=== PATIENT | male | born 1985 | race African-American/Black ===

== ENCOUNTER 2019-08-28 18:29 | Emergency (ER) | payer BC ==
[2019-08-28] MEDS ORDERED: LIDOCAINE 1% 20 ML MDV ONE (20:20)
[2019-08-28] MEDS ORDERED: MORPHINE 2 MG/ML SYR ONE (20:58)
[2019-08-28] MEDS ORDERED: KETOROLAC 30 MG/ML INJ ONE (20:59)
[2019-08-28] MEDS ORDERED: MORPHINE 4 MG/ML SYR ONE (20:59)
[2019-08-28] MEDS ORDERED: CLINDAMYCIN 600MG/D5W 600 MG/50 ML BAG IV ONE (21:00)
[2019-08-28 21:18] LABS: Absolute Lymphocytes (CBC) 3.1 K/uL (0.7-4.9); Basophils % 0.7 % (0-1.3); Hematocrit 36.3 % (39.6-49.0); Lymphocytes % 15.4 % (15.3-44.8); MPV 8.3 fL (7.6-11.3); RBC Red Blood Cell Count 5.42 M/uL (4.33-5.43)
[2019-08-28 21:19] LABS: Potassium 3.8 mmol/L (3.5-5.1)
--- NOTE | 2019-08-28 22:08 | ER ---
Nurse's Notes [facility] Name: Jayna Flor Age: 34 yrs Sex: Male : 1985 Arrival Date: 08/28/2019 Time: 18:33 Bed 18 Private MD: Diagnosis: Cutaneous abscess of back [any part, except buttock] Presentation: 08/28 19:13 Presenting complaint: Patient states: "I've been having problems with my neck its real aj1 stiff I can't hardly turn my head" Reports that he has been having this pain for a week he saw his doctor yesterday and she prescribed him Flexeril but there's a swollen spot in the back and it popped open and now theres pus coming out". Transition of care: patient was not received from another setting of care. Onset of symptoms was 2018. Risk Assessment: Do you want to hurt yourself or someone else? Patient reports no desire to harm self or others. Initial Sepsis Screen: Does the patient meet any 2 criteria? No. Patient's initial sepsis screen is negative. Does the patient have a suspected source of infection? Yes: Skin breakdown/wound. Care prior to arrival: None. 19:13 Method Of Arrival: Ambulatory aj1 19:13 Acuity: JANE 4 aj1 Triage Assessment: 19:15 General: Appears in no apparent distress. comfortable, Behavior is calm, cooperative, aj1 appropriate for age. Pain: Complains of pain in neck. Pain: Pain currently is 6 out of 10 on a pain scale. Neuro: Level of Consciousness is awake, alert, obeys commands. Cardiovascular: Patient's skin is warm and dry. Respiratory: Airway is patent Respiratory effort is even, unlabored, Respiratory pattern is regular, symmetrical. Historical: - Allergies: 19:15 No Known Allergies; aj1 - Home Meds: 19:15 amlodipine oral [Active]; carvedilol Oral [Active]; doxazosin oral oral [Active]; aj1 - PMHx: 19:15 Hypertension; aj1 - Immunization history:: Flu vaccine is not up to date. - Social history:: Smoking status: Patient/guardian denies using tobacco. - Ebola Screening: : Patient denies travel to an Ebola-affected area in the 21 days before illness onset. Screenin:20 Abuse screen: Denies threats or abuse. Denies injuries from another. Nutritional cc3 screening: No deficits noted. Tuberculosis screening: No symptoms or risk factors identified. Fall Risk Ambulatory Aid- None/Bed Rest/Nurse Assist (0 pts). Gait- Normal/Bed Rest/Wheelchair (0 pts) Mental Status- Oriented to own ability (0 pts). Assessment: 19:20 General: Appears in no apparent distress. comfortable, Behavior is calm, cooperative, cc3 appropriate for age. Pain: Complains of pain in back of his neck Pain began a week ago. Neuro: Level of Consciousness is awake, alert, obeys commands, Oriented to person, place, time, situation, Appropriate for age. Cardiovascular: Denies chest pain, Heart tones S1 S2 present Capillary refill < 3 seconds in bilateral fingers Patient's skin is warm and dry. Respiratory: Airway is patent Respiratory effort is even, unlabored, Respiratory pattern is regular, symmetrical, Breath sounds are clear bilaterally. GI: Abdomen is round obese, Bowel sounds present X 4 quads. Abd is soft and non tender X 4 quads. : No signs and/or symptoms were reported regarding the genitourinary system. EENT: No signs and/or symptoms were reported regarding the EENT system. Derm: Skin is intact, is healthy with good turgor, Skin is normal, black. Musculoskeletal: Circulation, motion, and sensation intact. Range of motion: intact in all extremities. 20:18 Reassessment: Patient appears in no apparent distress at this time. Patient and/or cc3 family updated on plan of care and expected duration. Pain level reassessed. Patient is alert, oriented x 3, equal unlabored respirations, skin warm/dry/pink. 21:20 Reassessment: Patient appears in no apparent distress at this time. Patient and/or cc3 family updated on plan of care and expected duration. Pain level reassessed. Patient is alert, oriented x 3, equal unlabored respirations, skin warm/dry/pink. 22:15 Reassessment: Patient appears in no apparent distress at this time. Patient and/or cc3 family updated on plan of care and expected duration. Pain level reassessed. Patient is alert, oriented x 3, equal unlabored respirations, skin warm/dry/pink. ELISSA Medrano discharged the patient home with prescriptions given. Wound cleaning and dressing done. IV cannula removed and patient left ER vitally stable and ambulatory with his . No valuables left in the patient's room. Patient denies pain at this time. Patient states feeling better. Patient states symptoms have improved. Vital Signs: 19:15 BP 168 / 97; Pulse 86; Resp 18; Temp 98.2; Pulse Ox 97% on R/A; Weight 175.09 kg (R); aj1 Height 5 ft. 10 in. (177.80 cm) (R); Pain 6/10; 20:44 BP 153 / 98; Pulse 76; Resp 16 S; Pulse Ox 100% on R/A; cc3 21:20 BP 151 / 79; Pulse 82; Resp 17 S; Pulse Ox 98% on R/A; cc3 22:12 BP 134 / 67; Pulse 78; Resp 16 S; Pulse Ox 99% on R/A; Pain 0/10; cc3 19:15 Body Mass Index 55.38 (175.09 kg, 177.80 cm) aj1 ED Course: 18:33 Patient arrived in ED. cf2 19:15 Triage completed. aj1 19:15 Arm band placed on Patient placed in an exam room. aj1 19:18 Caroline Raymundo is Primary Nurse. cc3 19:20 Patient has correct armband on for positive identification. Bed in low position. Call cc3 light in reach. Side rails up X 1. Pulse ox on. NIBP on. 19:25 Marcel Medrano PA is PHCP. [facility] 19:25 Irvin Barry MD is Attending Physician. [facility] 20:57 Initial lab(s) drawn, by ky, sent to lab. Inserted saline lock: 22 gauge in right hand, lt1 using aseptic technique. 21:00 Assist provider with I \\T\\ D: of an abscess on back of neck Set up I\\T\\D tray. Performed by cc 3 Marcel BOWERS Wound packed. iodoform gauze, Dressing with 4X4s, Patient tolerated well. 22:07 Ji Ramon MD is Referral Physician. [facility] 22:15 IV discontinued, intact, bleeding controlled, No redness/swelling at site. Pressure cc3 dressing applied. Administered Medications: 20:40 Drug: Lidocaine (1 %) 20 ml {Note: administered by ELISSA Medrano.} Volume: 20 ml; Route: cc3 Infiltration; Site: affected area; 20:53 CANCELLED (Other Intervention Used): morphine 4 mg IM once; RASS on ADMIN: Combtv4, cc3 Very Agttd3, Agttd2, Rstlss1, AlertClm0, Drwsy-1, Lt Sdtn-2, Mod Sdtn-3, Dp Sdtn-4, UnArsble-5 21:00 Drug: Ketorolac 30 mg Route: IVP; Site: right hand; cc3 22:15 Follow up: Response: No adverse reaction; Pain is decreased cc3 21:05 Drug: morphine 10 mg {Note: RASS 0.} Route: IVP; Site: right hand; cc3 22:15 Follow up: Response: No adverse reaction; Pain is decreased; RASS: Alert and Calm (0) cc3 21:10 Drug: Clindamycin 600 mg Route: IVPB; Infused Over: 30 mins; Site: right hand; cc3 21:45 Follow up: Response: No adverse reaction; IV Status: Completed infusion; IV Intake: [id number] Intake: 21:45 IV: 50ml; Total: 50ml. cc3 Outcome: 22:07 Discharge ordered by . aime 22:15 Discharged to home ambulatory, with family. cc3 22:15 Condition: stable 22:15 Discharge instructions given to patient, Instructed on discharge instructions, follow up and referral plans. medication usage, wound care, Demonstrated understanding of instructions, follow-up care, medications, wound care, Prescriptions given X 2. 22:23 Patient left the ED. cc3 Signatures: Shannon Fonseca RN RN aj1 Marcel Medrano PA PA jmm Cordel, Charlene cc3 Luzmaria Garcia lt1 Tia Liz cf2 Corrections: (The following items were deleted from the chart) 08/29 00:09 11 22:15 No provider procedures requiring assistance completed. cc3 cc3
--- NOTE | 2019-08-28 22:08 | EDPHYS ---
Physician Documentation [facility] Name: Jayna Flor Age: 34 yrs Sex: Male : 1985 Arrival Date: 08/28/2019 Time: 18:33 Bed 18 Private MD: ED Physician Irvin Barry HPI: 08/28 19:28 This 34 yrs old Black Male presents to ER via Ambulatory with complaints of Neck jmm Problem. 19:28 The patient or guardian complains of pain. Onset: The symptoms/episode began/occurred jmm gradually, 2 week(s) ago. Associated signs and symptoms: Pertinent negatives: fever. The pain does not radiate. This is a 34 year old male with a history of htn that presents to the ED with complaints of neck pain for 2 weeks. Was prescribed flexeril by pcp with no relief. Patient noticed drainage today. Denies fever or chills. . Historical: - Allergies: 19:15 No Known Allergies; aj1 - Home Meds: 19:15 amlodipine oral [Active]; carvedilol Oral [Active]; doxazosin oral oral [Active]; aj1 - PMHx: 19:15 Hypertension; aj1 - Immunization history:: Flu vaccine is not up to date. - Social history:: Smoking status: Patient/guardian denies using tobacco. - Ebola Screening: : Patient denies travel to an Ebola-affected area in the 21 days before illness onset. ROS: 19:28 Constitutional: Negative for fever, chills, and weight loss, Cardiovascular: Negative jmm for chest pain, palpitations, and edema, Respiratory: Negative for shortness of breath, cough, wheezing, and pleuritic chest pain. 19:28 Neck: Positive for pain at rest. 19:28 All other systems are negative. Exam: 19:28 Constitutional: This is a well developed, well nourished patient who is awake, alert, jmm and in no acute distress. Head/Face: atraumatic. Eyes: EOMI, no conjunctival erythema appreciated ENT: Moist Mucus Membranes Neck: Trachea midline, Supple Chest/axilla: Normal chest wall appearance and motion. Cardiovascular: Regular rate and rhythm. No edema appreciated Respiratory: Normal respirations, no respiratory distress appreciated Abdomen/GI: Non distended, soft Back: Normal ROM MS/ Extremity: Moves all extremities, no obvious deformities appreciated, no edema noted to the lower extremities 19:28 Skin: draining abscess noted to the lower cervical region. 19:28 Neuro: Orientation: is normal, Mentation: is normal, Memory: is normal. 19:28 Psych: Behavior/mood is pleasant, cooperative. Vital Signs: 19:15 BP 168 / 97; Pulse 86; Resp 18; Temp 98.2; Pulse Ox 97% on R/A; Weight 175.09 kg (R); aj1 Height 5 ft. 10 in. (177.80 cm) (R); Pain 6/10; 20:44 BP 153 / 98; Pulse 76; Resp 16 S; Pulse Ox 100% on R/A; cc3 21:20 BP 151 / 79; Pulse 82; Resp 17 S; Pulse Ox 98% on R/A; cc3 22:12 BP 134 / 67; Pulse 78; Resp 16 S; Pulse Ox 99% on R/A; Pain 0/10; cc3 19:15 Body Mass Index 55.38 (175.09 kg, 177.80 cm) [facility] Procedures: 22:03 I \T\ D: Incision and drainage was performed for an abscess of the neck Prepped with [facility] Betadine, Anesthetized with 10 ml's 1% Lidocaine. Incised with #11 blade. Drained large amount purulent fluid. Packed with sterile gauze, Dressing: sterile 4x4 gauze, the patient tolerated the procedure well. MDM: 19:28 Patient medically screened. [facility] 22:04 Data reviewed: vital signs, nurses notes. Counseling: I had a detailed discussion with [facility] the patient and/or guardian regarding: the historical points, exam findings, and any diagnostic results supporting the discharge/admit diagnosis, lab results, the need for outpatient follow up, to return to the emergency department if symptoms worsen or persist or if there are any questions or concerns that arise at home. ED course: Patient is advised to follow up with gen surgery for reevaluation. Patient given strict return precautions. Patient understood and agrees with the plan of care. . 08/28 20:45 Order name: CBC with Diff; Complete Time: 21:47 [facility] 08/28 20:45 Order name: BMP; Complete Time: 21:29 [facility] 08/28 19:44 Order name: Incision \T\ Drainage Setup; Complete Time: 20:54 [facility] 08/28 20:45 Order name: Saline Lock; Complete Time: 20:57 jmm Administered Medications: 20:40 Drug: Lidocaine (1 %) 20 ml {Note: administered by ELISSA Medrano.} Volume: 20 ml; Route: cc3 Infiltration; Site: affected area; 20:53 CANCELLED (Other Intervention Used): morphine 4 mg IM once; RASS on ADMIN: Combtv4, cc3 Very Agttd3, Agttd2, Rstlss1, AlertClm0, Drwsy-1, Lt Sdtn-2, Mod Sdtn-3, Dp Sdtn-4, UnArsble-5 21:00 Drug: Ketorolac 30 mg Route: IVP; Site: right hand; cc3 22:15 Follow up: Response: No adverse reaction; Pain is decreased cc3 21:05 Drug: morphine 10 mg {Note: RASS 0.} Route: IVP; Site: right hand; cc3 22:15 Follow up: Response: No adverse reaction; Pain is decreased; RASS: Alert and Calm (0) cc3 21:10 Drug: Clindamycin 600 mg Route: IVPB; Infused Over: 30 mins; Site: right hand; cc3 21:45 Follow up: Response: No adverse reaction; IV Status: Completed infusion; IV Intake: [id number] Disposition: 08/28/19 22:07 Discharged to Home. Impression: Cutaneous abscess of back [any part, except buttock]. - Condition is Stable. - Discharge Instructions: Skin Abscess, Incision and Drainage. - Prescriptions for Clindamycin HCl 300 mg Oral Capsule - take 1 capsule by ORAL route every 6 hours for 10 days; 40 capsule. Bactrim DS 800- 160 mg Oral Tablet - take 1 tablet by ORAL route every 12 hours for 10 days; 20 tablet. Tylenol- Codeine #3 300-30 mg Oral Tablet - take 1 tablet by ORAL route every 6 hours As needed; 20 tablet. - Medication Reconciliation Form, Thank You Letter, Antibiotic Education, Prescription Opioid Use, Work release form form. - Follow up: Ji Ramon MD; When: 2 - 3 days; Reason: Recheck today's complaints, Continuance of care, Re-evaluation by your physician. Signatures: Dispatcher [employer] Shannon Hui RN RN aj1 Marcel Medrano PA PA jmm Cordel, Charlene cc3 Corrections: (The following items were deleted from the chart) 20:53 20:33 morphine 4 mg IM once; RASS on ADMIN: Combtv4, Very Agttd3, Agttd2, Rstlss1, cc3 AlertClm0, Drwsy-1, Lt Sdtn-2, Mod Sdtn-3, Dp Sdtn-4, UnArsble-5 ordered. [facility] 20:53 20:44 morphine 4 mg IM once; RASS on ADMIN: Combtv4, Very Agttd3, Agttd2, Rstlss1, cc3 AlertClm0, Drwsy-1, Lt Sdtn-2, Mod Sdtn-3, Dp Sdtn-4, UnArsble-5 ordered. cc3 22:23 22:07 08/28/2019 22:07 Discharged to Home. Impression: Cutaneous abscess of back [any cc3 part, except buttock]. Condition is Stable. Forms are Medication Reconciliation Form, Thank You Letter, Antibiotic Education, Prescription Opioid Use. Follow up: Ji Ramon; When: 2 - 3 days; Reason: Recheck today's complaints, Continuance of care, Re-evaluation by your physician. aime
[2019-08-28 23:30] VITALS: BP 168/97; TEMP 98.2; O2SAT 97
== END 2019-08-28 22:23 | disposition home or self-care (01) ==
LOC: ER 18:29
PROC: 0H94XZZ Drainage of Neck Skin, External Approach (ICD-10-PCS; principal; 2019-08-28)
DX: L02.11 Cutaneous abscess of neck (principal); I10 Essential (primary) hypertension
CPT/HCPCS: 36415; 80048; 85025; 96365; 96375; 99284; J2270

== ENCOUNTER 2021-06-21 19:01 | Emergency (ER) | payer BC ==
--- OUTSIDE RECORDS SUMMARY | 2021-06-21 19:04 | XMS REPORT | Continuity of Care Document ---
:1985 Author Organization [facility] t Address [facility] [address] Gandhi [address] [place] [id number] Care Team Providers Name Role Phone Unavailable Unavailable Unavailable Problems This patient has no known problems. Allergies, Adverse Reactions, Alerts This patient has no known allergies or adverse reactions. Medications This patient has no known medications. Procedures This patient has no known procedures. Results This patient has no known results.
[2021-06-21] MEDS ORDERED: ACETAMINOPHEN 500 MG TAB ONE (19:50)
[2021-06-21] MEDS ORDERED: ASPIRIN 81 MG CHEWABLE TABLET ONE (21:10)
[2021-06-21] MEDS ORDERED: FAMOTIDINE 20 MG/2 ML VIAL IV ONE (21:10)
[2021-06-21] MEDS ORDERED: NA CHLORIDE 0.9% 1,000 ML ONE (21:10)
[2021-06-21] MEDS ORDERED: AZITHROMYCIN 250 MG TAB ONE (21:10)
[2021-06-21] MEDS ORDERED: CASIRIVIMAB/IMDEVIMAB 10 ML VIAL ONE (21:52)
[2021-06-21 22:16] LABS: Absolute Lymphocytes (CBC) 1.1 K/uL (0.7-4.9); Basophils % 0.8 % (0-1.3); Hematocrit 39.1 % (39.6-49.0); Lymphocytes % 16.9 % (15.3-44.8); MPV 9.3 fL (7.6-11.3); RBC Red Blood Cell Count 5.87 M/uL (4.33-5.43)
[2021-06-21] MEDS ORDERED: NA CHLORIDE 0.9% 50 ML ONE (22:20)
[2021-06-21] MEDS ORDERED: NA CHLORIDE 0.9% 250 ML ONE (22:20)
[2021-06-21 22:30] LABS: Albumin 3.6 g/dL (3.4-5.0); Bilirubin Total 0.5 mg/dL (0.2-1.0); C-Reactive Protein 9.95 mg/L (<3.00); Ferritin 189.5 ng/mL (26-388); Potassium 3.6 mmol/L (3.5-5.1); Protein, Total 7.9 g/dL (6.4-8.2)
--- NOTE | 2021-06-21 22:39 | EDPHYS ---
Physician Documentation [facility] Name: Jayna Flor Age: 36 yrs Sex: Male : 1985 Arrival Date: 06/21/2021 Time: 19:07 Bed DX3 Private MD: KETTY Physician Antonio Kam HPI: 06/21 20:40 This 36 yrs old Black Male presents to ER via Ambulatory with complaints of High Blood angel Pressure, COVID POSITIVE. 20:40 The patient has elevated blood pressure and discovered this at home, with a home angel device. Onset: The symptoms/episode began/occurred today. Modifying factors: The symptoms are aggravated by activity, The symptoms are alleviated by remaining still. Historical: - Allergies: 19:21 amlodipine; kg - Home Meds: 19:21 losartan 50 mg oral tab 1 tab 2 times per day [Active]; tamsulosin 0.4 mg oral cap 1 kg cap BID [Active]; furosemide 20 mg Oral tab 1 tab 2 times per day [Active]; carvedilol 25 mg oral tab 1 tab every 12 hours [Active]; - PMHx: 19:21 Hypertension; CKD; kg - PSHx: 19:21 None; kg - Immunization history:: Adult Immunizations not up to date, Client reports having NOT received the Covid vaccine. - Social history:: Smoking status: Patient denies any tobacco usage or history of. Patient uses alcohol, weekly. ROS: 20:40 Eyes: Negative for injury, pain, redness, and discharge, ENT: Negative for injury, angel pain, and discharge, Neck: Negative for injury, pain, and swelling, Cardiovascular: Negative for chest pain, palpitations, and edema. 20:40 Respiratory: Negative for shortness of breath, cough, wheezing, and pleuritic chest pain, Abdomen/GI: Negative for abdominal pain, nausea, vomiting, diarrhea, and constipation, Back: Negative for injury and pain, : Negative for injury, bleeding, discharge, and swelling, MS/Extremity: Negative for injury and deformity, Skin: Negative for injury, rash, and discoloration, Neuro: Negative for headache, weakness, numbness, tingling, and seizure, Psych: Negative for depression, anxiety, suicide ideation, homicidal ideation, and hallucinations, Allergy/Immunology: Negative for hives, rash, and allergies, Endocrine: Negative for neck swelling, polydipsia, polyuria, polyphagia, and marked weight changes, Hematologic/Lymphatic: Negative for swollen nodes, abnormal bleeding, and unusual bruising. 20:40 Constitutional: Positive for fever. Exam: 20:40 Head/Face: Normocephalic, atraumatic. Eyes: Pupils equal round and reactive to light, angel extra-ocular motions intact. Lids and lashes normal. Conjunctiva and sclera are non-icteric and not injected. Cornea within normal limits. Periorbital areas with no swelling, redness, or edema. ENT: Nares patent. No nasal discharge, no septal abnormalities noted. Tympanic membranes are normal and external auditory canals are clear. Oropharynx with no redness, swelling, or masses, exudates, or evidence of obstruction, uvula midline. Mucous membranes moist. Neck: Trachea midline, no thyromegaly or masses palpated, and no cervical lymphadenopathy. Supple, full range of motion without nuchal rigidity, or vertebral point tenderness. No Meningismus. Chest/axilla: Normal chest wall appearance and motion. Nontender with no deformity. No lesions are appreciated. Cardiovascular: Regular rate and rhythm with a normal S1 and S2. No gallops, murmurs, or rubs. Normal PMI, no JVD. No pulse deficits. Respiratory: Lungs have equal breath sounds bilaterally, clear to auscultation and percussion. No rales, rhonchi or wheezes noted. No increased work of breathing, no retractions or nasal flaring. Abdomen/GI: Soft, non-tender, with normal bowel sounds. No distension or tympany. No guarding or rebound. No evidence of tenderness throughout. Back: No spinal tenderness. No costovertebral tenderness. Full range of motion. Male : Normal genitalia with no discharge or lesions. Skin: Warm, dry with normal turgor. Normal color with no rashes, no lesions, and no evidence of cellulitis. MS/ Extremity: Pulses equal, no cyanosis. Neurovascular intact. Full, normal range of motion. Neuro: Awake and alert, GCS 15, oriented to person, place, time, and situation. Cranial nerves II-XII grossly intact. Motor strength 5/5 in all extremities. Sensory grossly intact. Cerebellar exam normal. Normal gait. Psych: Awake, alert, with orientation to person, place and time. Behavior, mood, and affect are within normal limits. 20:40 Constitutional: The patient appears febrile. Vital Signs: 19:15 BP 159 / 81; Pulse 86; Resp 20; Temp 100.6(O); Pulse Ox 98% on R/A; Weight 183.7 kg kg (R); Height 5 ft. 10 in. (177.80 cm); Pain 8/10; 21:19 BP 141 / 77; Pulse 77; Resp 18 S; Temp 97.9(O); Pulse Ox 97% on R/A; bb 22:08 BP 158 / 87; Pulse 77; Resp 18 S; Pulse Ox 96% ; bb 22:51 BP 164 / 89; Pulse 77; Resp 18 S; Pulse Ox 95% on R/A; bb 23:38 BP 174 / 88; Pulse 76; Resp 18 S; Temp 98.7(O); Pulse Ox 97% on R/A; bb 19:15 Body Mass Index 58.11 (183.70 kg, 177.80 cm) kg MDM: 19:54 Patient medically screened. [facility] 20:42 Differential diagnosis: viral Infection, bacterial infection, URI, bronchitis, angel pneumonia. Differential Diagnosis: Influenza Upper Respiratory Infection Sinusitis Pharyngitis Otitis Media Allergic Rhinitis. Data reviewed: nurses notes, EMS record, lab test result(s), EKG, radiologic studies, plain films. Data interpreted: certified real estate appraiser: rate is 86 beats/min, rhythm is regular. Test interpretation: by ED physician or midlevel provider: ECG, plain radiologic studies. Counseling: I had a detailed discussion with the patient and/or guardian regarding: the historical points, exam findings, and any diagnostic results supporting the discharge/admit diagnosis, lab results, radiology results, the need for outpatient follow up, for definitive care, a family practitioner, a director of web marketing. 06/21 20:38 Order name: CBC with Diff angel 06/21 20:38 Order name: Comprehensive Metabolic Panel; Complete Time: 22:36 [facility] 06/21 20:38 Order name: Chest Pa And Lat (2 Views) XRAY 06/21 20:38 Order name: Ferritin; Complete Time: 22:36 [facility] 06/21 20:38 Order name: CRP; Complete Time: 22:36 [facility] 06/21 22:20 Order name: CBC Smear Scan EDMS Administered Medications: 20:13 Drug: Tylenol 1000 mg Route: PO; kg 21:18 Follow up: Response: No adverse reaction; Temperature is decreased bb 21:00 Drug: Aspirin Chewable Tablet 324 mg Route: PO; bb 22:11 Follow up: Response: No adverse reaction bb 21:00 Drug: Zithromax (azithromycin) 500 mg Route: PO; bb 22:11 Follow up: Response: No adverse reaction bb 21:18 Drug: Pepcid (famotidine) 40 mg Route: IVP; Site: right hand; bb 22:11 Follow up: Response: No adverse reaction bb 21:18 Drug: NS 0.9% 500 ml Route: IV; Rate: bolus; Site: right hand; bb 22:51 Follow up: IV Status: Completed infusion; IV Intake: 500ml bb 22:10 Drug: REGEN-COV Dose Pack 120 mg/mL-120 mg/mL (EUA) 1 vials Route: IV; Rate: per bb protocol; Site: right hand; 23:37 Follow up: IV Status: Completed infusion; IV Intake: 260ml bb 22:52 Drug: NS 0.9% 1000 ml Route: IV; Rate: 125 ml/hr; Site: right hand; bb 23:37 Follow up: IV Status: Order to discontinue infusion; IV Intake: 175ml bb Disposition Summary: 06/21/21 22:39 Discharge Ordered Location: Home angel Problem: new angel Symptoms: have improved angel Condition: Stable angel Diagnosis - Coronavirus infection, unspecified angel - Pneumonia due to SARS-associated coronavirus angel - Unspecified kidney failure - chronic renal insufficency angel Followup: angel - With: Private Physician - When: 2 - 3 days - Reason: Recheck today's complaints, Continuance of care, Re-evaluation by your physician Followup: angel - With: - When: 2 - 3 days - Reason: Recheck today's complaints, Continuance of care, Re-evaluation by your physician Discharge Instructions: - Discharge Summary Sheet angle - Upper Respiratory Infection, Adult angel - Viral Respiratory Infection, [id number] angel - Aspirin and Your Heart angel - COVID-19 angel - COVID-19 Frequently Asked Questions [facility] - 10 Things You Can Do to Manage Your COVID-19 Symptoms at Home - [facility] angel - COVID-19: Quarantine vs. Isolation - [facility] angel Forms: - Medication Reconciliation Form angel - Thank You Letter angel - Antibiotic Education [facility] - Prescription Opioid Use [facility] Prescriptions: - ivermectin 3 mg Oral tablet - take 4 tablet by ORAL route once daily; 20 tablet; Refills: 0, Product [facility] Selection Permitted - Pepcid 20 mg Oral Tablet - take 1 tablet by ORAL route every 12 hours for 15 days; 30 tablet; Refills: 0, [facility] Product Selection Permitted - Singulair 10 mg Oral Tablet - take 1 tablet by ORAL route At bedtime; 20 tablet; Refills: 0, Product [facility] Selection Permitted - Zithromax 500 mg Oral Tablet - take 1 tablet by ORAL route once daily for 5 days; 5 tablet; Refills: 0, [facility] Product Selection Permitted Signatures: Dispatcher [employer] Antonio Torres MD MD cha Ballard, Brenda, RN RN Estefania Schaffer RN RN kg
--- NOTE | 2021-06-21 22:39 | ER ---
Nurse's Notes [facility] Name: Jayna Flor Age: 36 yrs Sex: Male : 1985 Arrival Date: 06/21/2021 Time: 19:07 Bed DX3 Private MD: Diagnosis: Coronavirus infection, unspecified;Pneumonia due to SARS-associated coronavirus;Unspecified kidney failure-chronic renal insufficency Presentation: 06/21 19:15 Chief complaint: Patient states: SOB, Body Aches, Abdominal pain x 4 days. COVID + kg 06/20.Was sent over from a clinic. He was trying to get the molecular antibodies to treat COVID and received Amlodpine which he stated he's allergic to and caused his B/P to go way up. Coronavirus screen: Vaccine status: Patient reports being unvaccinated. Client denies travel out of the [place] in the last 14 days. At this time, unable to obtain information related to travel outside the [place] Client presents with at least one sign or symptom that may indicate coronavirus-19. Standard/surgical mask placed on the client. Provider contacted for isolation considerations. Client reports previous positive COVID test result. Date of collection: June 20, 2021. Ebola Screen: Patient negative for fever greater than or equal to 101.5 degrees Fahrenheit, and additional compatible Ebola Virus Disease symptoms Patient denies exposure to infectious person. Patient denies travel to an Ebola-affected area in the 21 days before illness onset. Initial Sepsis Screen: Does the patient meet any 2 criteria? No. Patient's initial sepsis screen is negative. Does the patient have a suspected source of infection? No. Patient's initial sepsis screen is negative. Risk Assessment: Do you want to hurt yourself or someone else? Patient reports no desire to harm self or others. Onset of symptoms was June 18, 2021. 19:15 Method Of Arrival: Ambulatory kg 19:15 Acuity: JANE 4 kg Triage Assessment: 19:21 General: Appears in no apparent distress. Behavior is calm, cooperative, appropriate kg for age, quiet. Pain: Complains of pain in abdomen Pain radiates to diaphragm and xiphoid area Pain currently is 8 out of 10 on a pain scale. at worst was 10 out of 10 on a pain scale. level that patient reports is acceptable is 3 out of 10 on a pain scale. Historical: - Allergies: 19:21 amlodipine; kg - Home Meds: 19:21 losartan 50 mg oral tab 1 tab 2 times per day [Active]; tamsulosin 0.4 mg oral cap 1 kg cap BID [Active]; furosemide 20 mg Oral tab 1 tab 2 times per day [Active]; carvedilol 25 mg oral tab 1 tab every 12 hours [Active]; - PMHx: 19:21 Hypertension; CKD; kg - PSHx: 19:21 None; kg - Immunization history:: Adult Immunizations not up to date, Client reports having NOT received the Covid vaccine. - Social history:: Smoking status: Patient denies any tobacco usage or history of. Patient uses alcohol, weekly. Screenin:25 Abuse screen: Denies threats or abuse. Denies injuries from another. Nutritional kg screening: No deficits noted. Tuberculosis screening: No symptoms or risk factors identified. Fall Risk None identified. Assessment: 20:00 General: Appears in no apparent distress. obese, Behavior is calm, cooperative. Neuro: bb Level of Consciousness is awake, alert, obeys commands, Oriented to person, place, time, situation. Cardiovascular: Capillary refill < 3 seconds Patient's skin is warm and dry. Respiratory: Respiratory effort is even, unlabored, Respiratory pattern is regular. GI: No signs and/or symptoms were reported involving the gastrointestinal system. Derm: Skin is dry, Skin is normal, Skin temperature is warm. Musculoskeletal: Circulation, motion, and sensation intact. 21:00 Reassessment: No changes from previously documented assessment. Patient is alert, bb oriented x 3, equal unlabored respirations, skin warm/dry/pink. 22:11 Reassessment: Patient is alert, oriented x 3, equal unlabored respirations, skin bb warm/dry/pink. Regen-Cov started pt being monitored. 22:50 Reassessment: Patient is alert, oriented x 3, equal unlabored respirations, skin bb warm/dry/pink. pt receiving Regen-Cov awaiting monitoring time for discharge. Pt resting comfortably no adverse effects noted. 23:37 Reassessment: Patient is alert, oriented x 3, equal unlabored respirations, skin bb warm/dry/pink. Regen-Cov completed infusion pt had no adverse reaction. Pt verbalized understanding of and agrees to plan of care discharge instructions given pt ambulated with steady gait to exit. Vital Signs: 19:15 BP 159 / 81; Pulse 86; Resp 20; Temp 100.6(O); Pulse Ox 98% on R/A; Weight 183.7 kg kg (R); Height 5 ft. 10 in. (177.80 cm); Pain 8/10; 21:19 BP 141 / 77; Pulse 77; Resp 18 S; Temp 97.9(O); Pulse Ox 97% on R/A; bb 22:08 BP 158 / 87; Pulse 77; Resp 18 S; Pulse Ox 96% ; bb 22:51 BP 164 / 89; Pulse 77; Resp 18 S; Pulse Ox 95% on R/A; bb 23:38 BP 174 / 88; Pulse 76; Resp 18 S; Temp 98.7(O); Pulse Ox 97% on R/A; bb 19:15 Body Mass Index 58.11 (183.70 kg, 177.80 cm) kg ED Course: 19:07 Patient arrived in ED. cf2 19:21 Triage completed. kg 19:21 Arm band placed on right wrist. kg 19:25 Patient has correct armband on for positive identification. kg 19:54 Antonio Kam MD is Attending Physician. angel 20:41 Jayashree Shine RN is Primary Nurse. bb 21:00 Initial lab(s) drawn, by me, sent to lab. Inserted saline lock: 20 gauge in right hand, bb using aseptic technique. Blood collected. Missed attempt(s): 20 gauge in left hand. Bleeding controlled, band aid applied, catheter tip intact. 21:34 Chest Pa And Lat (2 Views) XRAY In Process Unspecified. EDMS 22:37 Alireza Macias MD is Referral Physician. angel 23:38 No provider procedures requiring assistance completed. IV discontinued, intact, bb bleeding controlled, No redness/swelling at site. Pressure dressing applied. Administered Medications: 20:13 Drug: Tylenol 1000 mg Route: PO; kg 21:18 Follow up: Response: No adverse reaction; Temperature is decreased bb 21:00 Drug: Aspirin Chewable Tablet 324 mg Route: PO; bb 22:11 Follow up: Response: No adverse reaction bb 21:00 Drug: Zithromax (azithromycin) 500 mg Route: PO; bb 22:11 Follow up: Response: No adverse reaction bb 21:18 Drug: Pepcid (famotidine) 40 mg Route: IVP; Site: right hand; bb 22:11 Follow up: Response: No adverse reaction bb 21:18 Drug: NS 0.9% 500 ml Route: IV; Rate: bolus; Site: right hand; bb 22:51 Follow up: IV Status: Completed infusion; IV Intake: 500ml bb 22:10 Drug: REGEN-COV Dose Pack 120 mg/mL-120 mg/mL (EUA) 1 vials Route: IV; Rate: per bb protocol; Site: right hand; 23:37 Follow up: IV Status: Completed infusion; IV Intake: 260ml bb 22:52 Drug: NS 0.9% 1000 ml Route: IV; Rate: 125 ml/hr; Site: right hand; bb 23:37 Follow up: IV Status: Order to discontinue infusion; IV Intake: 175ml bb Intake: 22:51 IV: 500ml; Total: 500ml. bb 23:37 IV: 260ml; Total: 760ml. bb 23:37 IV: 175ml; Total: 935ml. bb Outcome: 22:39 Discharge ordered by . angel 23:39 Discharged to home ambulatory. bb 23:39 Condition: stable 23:39 Discharge instructions given to patient, Instructed on discharge instructions, follow up and referral plans. medication usage, Demonstrated understanding of instructions, follow-up care, medications, Prescriptions given X 4. 23:47 Patient left the ED. bb Signatures: Dispatcher [employer] Antonio Torres MD MD cha Ballard, Brenda, RN RN Tia Liz [facility] Estefania Perdue RN RN kg Corrections: (The following items were deleted from the chart) 22:08 22:07 BP 142 / 79; Pulse 89bpm; Resp 18bpm; Spontaneous; Pulse Ox 92% RA; bb bb
[2021-06-21 23:56] LABS: Blood Morphology Comment NOTED (NOT SEEN); Platelet Estimate ADEQ; White Blood Cell Scan OK (OK)
[2021-06-22 00:02] VITALS: BP 174/88; TEMP 98.7; O2SAT 97
--- NOTE | 2021-06-22 08:49 | RAD REPORT ---
EXAM DESCRIPTION: RAD - Chest Pa And Lat (2 Views) - 06/21/2021 9:35 pm CLINICAL HISTORY: COUGH COMPARISON: No comparisons FINDINGS: Lines: None. Lungs: No evidence of edema or pneumonia. Pleural: No significant pleural effusions or pneumothorax. Cardiac: The heart size is within normal limits. Bones: No acute fractures. Other: IMPRESSION: No acute cardiopulmonary disease.
== END 2021-06-21 23:47 | disposition home or self-care (01) ==
LOC: ER 19:01
DX: U07.1 COVID-19 (principal); J12.82 Pneumonia due to coronavirus disease 2019; I12.9 Hypertensive chronic kidney disease with stage 1 through stage 4 chronic kidney disease, or unspecified chronic kidney disease; N18.9 Chronic kidney disease, unspecified; Z88.8 Allergy status to other drugs, medicaments and biological substances
CPT/HCPCS: 96365; 96361; 85025; 36415; 82728; 80053; 86140; 71046; 96375; 99284; J7050; J7030